=== PATIENT | male | born 1965 | race Caucasian/White ===

== ENCOUNTER 2020-07-08 21:25 | Emergency (ER) | payer BC ==
[2020-07-08] MEDS ORDERED: KETOROLAC TROMETHAMINE INJ 30 MG/ML VIAL IV ONE (21:36)
[2020-07-08] MEDS ORDERED: ONDANSETRON INJ 4 MG/2 ML VIAL IV ONE (21:36)
[2020-07-08] MEDS ORDERED: MORPHINE SULFATE INJ 10 MG/ML VIAL IV ONE (21:36)
--- NOTE | 2020-07-08 21:46 | ED.PDOC ---
History of Present Illness - General Chief Complaint: Problem Stated Complaint: right side pain, "kidney stone" Time Seen by Provider: 07/08/20 21:30 - History of Present Illness Initial Comments: 54-year-old male positive past medical history with extensive urolithiasis history presents to ED complaining of 1/2 days of right CVA tenderness with radiation around abdomen. He complains of associated dysuria, frequency, urgen cy, hematuria, nausea with nonbloody nonbilious emesis. Denies fever/chills, chest pain, abdominal pain, diarrhea. Positive history of similar symptoms. States he has had approximately 90 kidney stones with having to have 9 of them removed. No alleviating/aggravating factors. Denies any other signs, symptoms, complaints at this time. Allergies/Adverse Reactions: Allergies NO KNOWN ALLERGY Allergy (Verified 07/08/20 22:03) Home Medications: Ambulatory Orders Ketorolac Tromethamine [Toradol Tabs] 10 mg PO TID PRN 5 Days #15 tab 07/08/20 Ondansetron Tab [Zofran Tab] 4 mg PO QID PRN #12 tab 07/08/20 Tamsulosin HCl [Flomax] 0.4 mg PO DAILY #30 cap 07/08/20 Review of Systems - Review of Systems Constitutional: Denies: chills, fever EENTM: Denies: nose congestion, throat pain Respiratory: Denies: cough, short of breath Cardiology: Denies: chest pain Gastrointestinal/Abdominal: States: nausea, vomiting. Denies: abdominal pain, diarrhea Genitourinary: States: dysuria, frequency, hematuria, other - + urgency Musculoskeletal: States: back pain - right CVAT Skin: Denies: change in color, rash Neurological: States: other - no dizziness. Denies: headache Hematologic/Lymphatic: Denies: easy bruising Family Medical History - Family History Mother Family History: No Known Physical Exam - Physical Exam General Appearance: Alert, Obvious distress, Other - non-toxic Eyes, Ears, Nose, Throat Exam: PERRL/EOMI, other - no scleral icterus Neck: full range of motion, supple Cardiovascular/Respiratory: regular rate, rhythm, no M/R/G, no JVD, normal breath sounds, no respiratory distress Gastrointestinal/Abdominal: normal bowel sounds, non tender, soft, other - no rebound, no guarding, no peritoneal signs Back Exam: CVA tenderness (R) Neurologic: alert, normal mood/affect, oriented x 3 Skin Exam: normal color, warm/dry, other - no rash Progress - Progress Progress: 07/08/20 21:47 John Munson DO Emergency Medicine Physician [id number] Appropriate PPE of surgical mask, gown, gloves, and eye protection (if encounter >5 minutes) utilized with every patient encounter; in accordance with hospital policy. Presents for ureterolithiasis. I will perform imaging, provide appropriate pharmacotherapy, and continue to monitor/reassess. Dispo will depend on imaging results and overall course in ED. Patient found to be with a large obstructing ureteral stone now passed into the bladder upon timing of CT scan. After the pain medication patient states his pain is greatly controlled. There is hydronephrosis however this will improve after obstruction has now resolved. There is a small stone in the proximal third of the ureter still but will pass without complication.Leukocytosis is secondary to patient's distress and recent vomiting causing demargination. There is no sign of infection and no systemic signs of infection. 23:06 Rechecked pt. NAD, VSS, resting comfortably in bed and is feeling much better. I have discussed radiology results, lab results, my clinical impression, and diagnosis. I have also discussed plan for discharge home with f/u, education, and prescription medications. ED return precautions provided. Pt voices understanding, agrees with plan, and all questions answered. - Results/Orders Results/Orders: 07/08/20 21:35 IV Care:Saline Lock per Protoc QSHIFT IV:Start .ONCE Laboratory Results - last 24 hr 07/08/20 07/08/20 07/08/20 21:35 21:44 21:44 WBC 16.6 H RBC 4.97 Hgb 14.7 Hct 43.9 MCV 88.3 MCH 29.5 MCHC 33.4 RDW 13.2 Plt Count 248 MPV 7.5 Absolute Neuts (auto) 13.90 H Absolute Lymphs (auto) 1.30 Absolute Monos (auto) 1.40 H Absolute Eos (auto) 0.10 Absolute Basos (auto) 0.10 Neutrophils % 83.5 H Lymphocytes % 7.6 L Monocytes % 8.1 Eosinophils % 0.4 L Basophils % 0.4 Sodium 141 Potassium 3.8 Chloride 105 Carbon Dioxide 27 Anion Gap 12.8 BUN 23 H Creatinine 1.25 BUN/Creatinine Ratio 18.4 Random Glucose 130 H Serum Osmolality 286.7 Calcium 9.1 Urine Color Yellow Urine Appearance Clear Urine pH 5.0 Ur Specific [place] 1.025 Urine Protein 100 H Urine Glucose (UA) Negative Urine Ketones Trace Urine Blood Large H Urine Nitrite Negative Urine Bilirubin Negative Urine Urobilinogen 0.2 Ur Leukocyte Esterase Negative Urine RBC 30-40 H Urine WBC 1-3 Ur Epithelial Cells 0-1 Calcium Oxalate Crystal 1+ Urine Bacteria 0 EXAM DESCRIPTION: Abdoment/Pelvis w/o Contrast CLINICAL HISTORY: 54 years Male urolithiasis COMPARISON: None. TECHNIQUE: Contiguous axial images obtained through the abdomen and pelvis without IV contrast. Reformatted images obtained. This exam was performed according to our department optimization program which includes automated exposure control, adjustment of the mA and/or kv according to patient size and/or use of iterative reconstruction technique. FINDINGS: Mild scarring/atelectasis in the lower lungs. There is a calcified granuloma in the left lower lung. The liver appears unremarkable. The spleen and pancreas appear unremarkable. No adrenal masses. There is marked right hydronephrosis and hydroureter. There is a calculus in the right upper ureter which does not appear to be causing obstruction measuring 0.45 cm. There is a calculus at the right ureterovesical junction measuring 0.8 x 0.6 cm. There are bilateral nonobstructing renal calculi greater on the right. The largest calculus in the right kidney measures 0.8 cm in length. There is a superior pole left renal cyst. The gallbladder is visualized. No aneurysmal dilatation of the aorta. No bowel obstruction. The appendix appears unremarkable. Scattered colonic diverticula. No significant free pelvic fluid. There is a fat-containing umbilical hernia. Degenerative changes in the spine. IMPRESSION: There is m arked right hydronephrosis and hydroureter with a 0.8 x 0.6 cm calculus at the right ureterovesical junction. There is a 0.45 cm nonobstructing calculus in the upper right ureter. There are bilateral nonobstructing renal calculi. Electronically signed by: Lavon Hwang MD 07/08/2020 10:48 PM [employer] - [id number] ED physician Read: UVJ stone is in the bladder and passed the UV junction. Stone is no longer an obstruction. Vital Signs - 24 hr 07/08/20 21:45 Temperature 98.0 F Pulse Rate 63 Pulse Rate [ 63 Left Radial] Respiratory 22 Rate Blood Pressure 185/118 [Left Arm] O2 Sat by Pulse 97 Oximetry Departure - Departure Clinical Impression: Ureterolithiasis Urolithiasis Qualifiers: Urinary calculus location: bladder Qualified Code(s): N21.0 - Calculus in bladder Hydronephrosis Qualifiers: Hydronephrosis type: with ureteral calculous obstruction Qualified Code(s): N13.2 - Hydronephrosis with renal and ureteral calculous obstruction Hematuria Qualifiers: Hematuria type: gross Qualified Code(s): R31.0 - Gross hematuria ICD-10 Supporting Text: Ureterolithiasis obstruction is now resolved. Time of Disposition: 22:58 Disposition: Discharge to Home or Self Care Condition: Fair Departure Forms: ED Discharge - Pt. Copy, Patient Portal Self Enrollment Instructions: Blood in the Urine (Hematuria) in Adults, Kidney Stones (DC), Renal Colic (DC) Diet: resume usual diet Activity: increase activity as tolerated Referrals: JERAMIE HEDRICK [Referring] - 1 Week Prescriptions: Tamsulosin HCl [Flomax] 0.4 mg PO DAILY #30 cap Ketorolac Tromethamine [Toradol Tabs] 10 mg PO TID PRN 5 Days #15 tab PRN Reason: Pain Ondansetron Tab [Zofran Tab] 4 mg PO QID PRN #12 tab PRN Reason: Nausea/Vomiting Home Medications: Ambulatory Orders Ketorolac Tromethamine [Toradol Tabs] 10 mg PO TID PRN 5 Days #15 tab 07/08/20 Ondansetron Tab [Zofran Tab] 4 mg PO QID PRN #12 tab 07/08/20 Tamsulosin HCl [Flomax] 0.4 mg PO DAILY #30 cap 07/08/20
[2020-07-08 22:06] VITALS: O2SAT 97
[2020-07-08] MEDS ORDERED: HYDROmorphone HCL INJ 2 MG/ML VIAL IV ONE (22:35)
--- NOTE | 2020-07-08 22:50 | CT ---
EXAM DESCRIPTION: Abdoment/Pelvis w/o Contrast CLINICAL HISTORY: 54 years Male urolithiasis COMPARISON: None. TECHNIQUE: Contiguous axial images obtained through the abdomen and pelvis without IV contrast. Reformatted images obtained. This exam was performed according to our department optimization program which includes automated exposure control, adjustment of the mA and/or kv according to patient size and/or use of iterative reconstruction technique. FINDINGS: Mild scarring/atelectasis in the lower lungs. There is a calcified granuloma in the left lower lung. The liver appears unremarkable. The spleen and pancreas appear unremarkable. No adrenal masses. There is marked right hydronephrosis and hydroureter. There is a calculus in the right upper ureter which does not appear to be causing obstruction measuring 0.45 cm. There is a calculus at the right ureterovesical junction measuring 0.8 x 0.6 cm. There are bilateral nonobstructing renal calculi greater on the right. The largest calculus in the right kidney measures 0.8 cm in length. There is a superior pole left renal cyst. The gallbladder is visualized. No aneurysmal dilatation of the aorta. No bowel obstruction. The appendix appears unremarkable. Scattered colonic diverticula. No significant free pelvic fluid. There is a fat-containing umbilical hernia. Degenerative changes in the spine. IMPRESSION: There is marked right hydronephrosis and hydroureter with a 0.8 x 0.6 cm calculus at the right ureterovesical junction. There is a 0.45 cm nonobstructing calculus in the upper right ureter. There are bilateral nonobstructing renal calculi. Electronically signed by: Lavon Hwang MD 07/08/2020 10:48 PM FEATHER BONER
[2020-07-08 23:38] VITALS: BP 179/82; TEMP 97.4
== END 2020-07-08 23:30 | disposition home or self-care (01) ==
LOC: ER 21:25
DX: N13.2 Hydronephrosis with renal and ureteral calculous obstruction (principal); N21.0 Calculus in bladder; R31.0 Gross hematuria; Z98.890 Other specified postprocedural states; Z87.442 Personal history of urinary calculi
CPT/HCPCS: 74176; 80048; 81001; 85025; J1170; J1885; J2270; J2405